=== PATIENT | male | born 1975 | race African-American/Black ===

== ENCOUNTER 2019-02-17 15:54 | Emergency (ER) | payer OTHER, BC ==
[~2019-02-17] VITALS: Ht 185.4 cm; Wt 97.1 kg
== END 2019-02-17 17:14 | disposition home or self-care (01) ==
LOC: ER 15:54
DX: S01.82XA Laceration with foreign body of other part of head, initial encounter (principal); W45.8XXA Other foreign body or object entering through skin, initial encounter; Y93.89 Activity, other specified; Y92.838 Other recreation area as the place of occurrence of the external cause; Y99.8 Other external cause status